=== PATIENT | male | born 1970 | race Caucasian/White ===

== ENCOUNTER 2021-05-13 08:08 | Inpatient (IN) ==
[2021-05-13] MEDS ORDERED: SODIUM CHLORIDE 0.9% 1000ML 1,000 ML IV STA (08:27)
[2021-05-13] MEDS ORDERED: ACETAMINOPHEN 500 MG TAB PO STA (08:48)
[2021-05-13] MEDS ORDERED: ALBUT/IPRATROP 3MG/0.5MG NEB 3 ML VIAL NEB STA (08:49)
[2021-05-13] MEDS ORDERED: dexAMETHasone 6 MG in SYRINGE 0 ML IV ONE (08:49)
[2021-05-13 09:13] LABS: Base Excess VBG -13.3 mEq/L; pH VBG 7.32 (7.36-7.41)
[2021-05-13 09:17] LABS: Hematocrit (blood only) 47.7 % (42-52); Mean Corpuscular Hemoglobin 31.9 pg (25-34); Mean Corpuscular Hgb Conc 33.5 g/dL (32-36); Mean Corpuscular Volume 95.2 fL (80-100); Mean Platelet Volume 9.7 fL (7.4-10.4); Platelet Count 549 K/uL (130-400); RDW Coefficient of Variation 12.9 % (11.5-14.5); RDW Standard Deviation 45.2 fL (36.4-46.3); Red Blood Count 5.01 M/uL (4.7-6.1); White Blood Count 10.98 K/uL (4.8-10.8)
[2021-05-13] MEDS ORDERED: SODIUM CHLORIDE 0.9% 1000ML 1,000 ML IV ONE ×2 (09:21→09:52)
[2021-05-13 09:48] LABS: Alanine Aminotransferase 68 U/L (12-78); Albumin Globulin Ratio 0.6 (0.9-2); Alkaline Phosphatase 81 U/L (45-117); Aspartate Aminotransferase 20 U/L (15-37); Blood Urea Nitrogen 53 mg/dl (7-18); Calcium 9.8 mg/dl (8.5-10.1); Carbon Dioxide 10 mmol/L (21-32); Chloride 101 mmol/L (98-107); Creatinine Clr Calc Pharmacy 67.5 ml/min; Est GFR (African American) 66.4 ml/min; Est GFR (Non-African American) 57.3 ml/min; Potassium 5.9 mmol/L (3.5-5.1); Sodium 131 mmol/L (136-145); Troponin I < 0.015 ng/ml (0-0.045)
[2021-05-13] MEDS ORDERED: CARBOHYDRATES FOR HYPOGLYCEMIA PO PRN (09:52)
[2021-05-13] MEDS ORDERED: GLUCOSE 10 TABS/TUBE PO PRN (09:52)
[2021-05-13] MEDS ORDERED: DKA GOAL RANGE 150-250 mg/dl ONE (09:52)
[2021-05-13] MEDS ORDERED: DEXTROSE 50% 50 ML SYRINGE IV PRN (09:52)
[2021-05-13] MEDS ORDERED: GLUCAGON FOR INJ 1 MG VIAL SQ PRN (09:52)
[2021-05-13] MEDS ORDERED: GLUCOSE 40% GEL 15 GM TUBE PO PRN (09:52)
[2021-05-13] MEDS ORDERED: STAT IV Infusion **Titration per Protocol STA ×3 (09:52→12:44)
[2021-05-13] MEDS ORDERED: NovoLIN-R BOLUS FROM BAG IV ONE (10:00)
[2021-05-13] MEDS ORDERED: INSULIN REGULAR 250 UNITS in SODIUM CHLORIDE 0.9% 247.5 ML IV SCH ×2 (10:00→14:05)
[2021-05-13 10:05] LABS: Basophils # (auto) 0.06 K/uL (0-0.2); Basophils % (auto) 0.5 %; Immature Granulocytes # (auto) 0.13 K/uL (0.00-0.02); Immature Granulocytes % (auto) 1.2 %; Monocytes # (auto) 1.09 K/uL (0.11-0.59); Monocytes % (auto) 9.9 %; Neutrophils % (auto) 78.4 %
[2021-05-13 10:13] LABS: BUN Creatinine Ratio 37.6 (10-20); Glucose 477 mg/dl (70-99)
[2021-05-13 10:29] LABS: Phosphorus 6.1 mg/dl (2.5-4.9)
[2021-05-13 10:43] LABS: Beta-Hydroxybutyrate 78.79 mg/dl (0.2-2.81)
--- NOTE | 2021-05-13 10:45 | XRay Report ---
XR chest 1V portable CLINICAL HISTORY: COVID, SOB TECHNIQUE: Single frontal radiograph of the chest was obtained. Comparison: Comparison is made to chest one view 01/06/2021 FINDINGS: No lines and tubes are seen. The cardiomediastinal silhouette is normal. Lungs are underinflated. The re are bilateral lower lung airspace opacities. No evidence of pleural effusion or pneumothorax. IMPRESSION: Bilateral lower lung airspace opacities may represent atelectasis and/or pneumonia. ACT 112: Negative or not required by law. Electronically signed by: Twan Long M.D. 05/13/2021 10:44 AM
[2021-05-13 10:57] LABS: Appearance Urine Clear (Clear); Bacteria Urine Automated Negative (Negative); Bilirubin Urine Negative (Negative); Blood Urine Trace (Negative); Color Urine Yellow; Glucose Urine UA 3+ (Negative); Ketones Urine 4+ (Negative); Leukocyte Esterase Urine Negative (Negative); Nitrite Urine Negative (Negative); Protein Urine 1+ (Negative); RBC Urine Automated 0-4 /hpf (0-4); Specific Gravity Urine 1.035 (1.000-1.030); Urobilinogen Urine Negative (Negative); pH Urine 5.5 (4.5-7.5)
[2021-05-13 11:06] LABS: Estimated Average Glucose 252 mg/dl; Hemoglobin A1C 10.4 % (4.5-5.6)
[2021-05-13] MEDS ORDERED: INSULIN ASPART 100 UNITS/ML 3 ML PEN SC SCH ×2 (11:30→16:30)
[2021-05-13] MEDS ORDERED: OPTIRAY 320 125ml IV ONE (11:30)
--- NOTE | 2021-05-13 12:28 | CT Scan Report ---
CT angio chest PE protocol CLINICAL HISTORY: PE TECHNIQUE: Multidetector row helical CT of the chest was performed. Coronal and sagittal reformations were obtained. Automated dose lowering techniques and/or adjustment according to patient size were u tilized for this exam. Comparison: Comparison is made to chest radiograph 05/13/2021 FINDINGS: Lungs and pleura: Multifocal groundglass opacities are seen bilaterally. Atelectasis is seen in place was Heart and pericardium: Heart size is normal. No pericardial effusion. Vessels: No evidence of pulmonary embolism. Mediastinum and luis: Unremarkable. Chest wall and lower neck: Unremarkable. Abdomen: Hepatic steatosis is noted. Bones: Degenerative changes in the thoracic spine. IMPRESSION: 1. No evidence of pulmonary embolism. 2. Multifocal ground glass opacities compatible with history of viral pneumonia. ACT 112: Negative or not required by law. Electronically signed by: Twan Long M.D. 05/13/2021 12:26 PM
--- NOTE | 2021-05-13 12:56 | History & Physical Report ---
Date of Service May 13, 2021 Assessment & Plan (1) Pneumonia due to COVID-19 virus: (2) Acute respiratory failure with hypoxia: Plan: -admit to tele -patient presenting from home with reports of worsening generalized weakness and shortness of breath. Tested positive for COVID-19 on 05/01. He reports obtaining hydroxychloroquine from the Internet for which he took a 10-day course. Was seen in urgent care last week and was found to be hypoxic at 86% however refused oxygen and hospital evaluation. Patient was given prednisone, azithromycin, Augmentin. -In the ED, requiring 2 L of oxygen via oxygen mask -CTA chest negative for PE however shows multifocal ground glass opacities -Given current length of illness, remdesivir would not be indicated. CRP 2.05, tocilizumab not indicated. -IV dexamethasone 6 mg daily -Continue supportive care with nebs, flutter valve, incentive spirometer, self proning encouraged -Pulmonary consult, input appreciated (3) DKA (diabetic ketoacidosis): Plan: -Initial labs show glucose 477, bicarb 10, anion gap 20; VBG pH 7.32 -Continue insulin drip and IVF per protocol -Serial BMP and VBG's -Hgb A1c 8.5 01/2021 (4) DVT prophylaxis: Plan: -SQ Lovenox History of Present Illness Chief Complaint: Shortness of breath Primary Care Provider: Jorgito Fairchild MD 50-year-old male with PMH DM type II, HLD, and other problems listed below who presents to the ED for evaluation of shortness of breath. Patient tested positive for COVID-19 on 05/01. He reports obtaining hydroxychloroquine from the Internet for which he took a 10-day course. Was seen in urgent care last week and was found to be hypoxic at 86% however refused oxygen and hospital evaluation. Patient was given prednisone, azithromycin, Augmentin. Patient reports severe generalized weakness and shortness of breath with minimal exertion. He has had a nonproductive cough. Reports running low-grade fevers. Has had a very poor appetite however denies abdominal pain, nausea, vomiting, diarrhea. No urinary symptoms. In the ED, patient is requiring 10 L of oxygen via OxiMax. CTA chest negative for pulmonary embolism however shows multifocal groundglass opacities. Labs are suggestive of DKA. Patient was given Tylenol, nebulizer treatment, IV dexamethasone, insulin drip started, IVF. Allergies Allergy/AdvReac Type Severity Reaction Status Date / Time No Known Allergies Allergy Unverified 01/06/21 08:51 Home Medications Medication Instructions Recorded Confirmed Type dulaglutide 0.75 mg/0.5 mL 0.75 mg SUBCUT SA 01/06/21 05/13/21 History subcutaneous pen injector (Trulicity) glimepiride 2 mg tablet 2 mg PO QAM 01/06/21 05/13/21 History metformin 1,000 mg tablet 1,000 mg PO BIDM 01/06/21 05/13/21 History albuterol sulfate 2.5 mg INHALATION Q6H PRN 05/13/21 05/13/21 History amoxicillin 875 mg-potassium 1 tab PO BID 05/13/21 05/13/21 History clavulanate 125 mg tablet atorvastatin 20 mg tablet 20 mg PO DAILY 05/13/21 05/13/21 History azithromycin 250 mg tablet 250 mg PO DAILY 05/13/21 05/13/21 History prednisone 20 mg tablet 40 mg PO DAILY 05/13/21 05/13/21 History Past Med/Surg History Medical History (Updated 05/13/21 @ 13:03 by ADONAY Godoy) Diabetes HLD (hyperlipidemia) Surgical History No pertinent past surgical history Family History Other Family history non-contributory Social History Smoking Status: Never smoker Hx Alcohol Use: No Hx Substance Use: No Preferred Language: Sami Molder Hand Required: No Beliefs That Will Affect Care: None Current Living Situation: Spouse Other Information That Helps Us Care for You: No Feels Safe at Home: Yes Safety Concerns: Feels Safe At This Time Assistive Devices: Oxygen - Continuous Assistive Devices Comment: 4L per PCP Review of Systems Review of Systems: ROS per HPI, all other systems reviewed and negative Physical Exam Physical Exam: please refer to Dr. Snider's addendum for physical exam Results & Data Results & Data ([facility]) Vital Signs (Past 12 Hours) Vital Signs Temp Pulse Pulse Resp BP BP Pulse Ox 05/13/21 12:19 36.5 C 94 H 26 H 133/83 93 05/13/21 11:39 99 H 35 H 132/77 96 05/13/21 09:10 91 H 93 05/13/21 09:07 28 L 95 05/13/21 09:00 89 95 05/13/21 08:50 89 94 05/13/21 08:49 91 H 93 05/13/21 08:12 36.4 C L 92 H 24 128/68 88 L Laboratory Results Short CBC 05/13/21 Range/Units 08:59 WBC 10.98 H (4.8-10.8) K/uL Hgb 16.0 (14.0-18.0) g/dL Hct 47.7 (42-52) % Plt Count 549 H (130-400) K/uL BMP 05/13/21 08:59 Sodium 131 L Potassium 5.9 H Chloride 101 Carbon Dioxide 10 L BUN 53 H Creatinine 1.41 H Glucose 477 H* Calcium 9.8 Cardiac Enzymes 05/13/21 Range/Units 08:59 Troponin I < 0.015 (0-0.045) ng/ml Liver Function 05/13/21 Range/Units 08:59 Total Bilirubin 1.0 (0.2-1) mg/dl AST 20 (15-37) U/L ALT 68 (12-78) U/L Alkaline Phosphatase 81 (45-117) U/L Albumin 3.0 L (3.4-5.0) gm/dl Urine 05/13/21 Range/Units 10:41 Urine Color Yellow Urine Appearance Clear (Clear) Urine pH 5.5 (4.5-7.5) Ur Specific [place] 1.035 H (1.000-1.030) Urine Protein 1+ H (Negative) Urine Glucose (UA) 3+ H (Negative) Diagnostic Findings Chest X-Ray 05/13/21 08:27 XR chest 1V portable CLINICAL HISTORY: COVID, SOB TECHNIQUE: Single frontal radiograph of the chest was obtained. Comparison: Comparison is made to chest one view 01/06/2021 FINDINGS: No lines and tubes are seen. The cardiomediastinal silhouette is normal. Lungs are underinflated. There are bilateral lower lung airspace opacities. No evidence of pleural effusion or pneumothorax. IMPRESSION: Bilateral lower lung airspace opacities may represent atelectasis and/or pneumonia. ACT 112: Negative or not required by law. Electronically signed by: Twan Long M.D. 05/13/2021 10:44 AM Chest CTA 05/13/21 10:25 CT angio chest PE protocol CLINICAL HISTORY: PE TECHNIQUE: Multidetector row helical CT of the chest was performed. Coronal and sagittal reformations were obtained. Automated dose lowering techniques and/or adjustment according to patient size were utilized for this exam. Comparison: Comparison is made to chest radiograph 05/13/2021 FINDINGS: Lungs and pleura: Multifocal groundglass opacities are seen bilaterally. Atelectasis is seen in place was Heart and pericardium: Heart size is normal. No pericardial effusion. Vessels: No evidence of pulmonary embolism. Mediastinum and luis: Unremarkable. Chest wall and lower neck: Unremarkable. Abdomen: Hepatic steatosis is noted. Bones: Degenerative changes in the thoracic spine. IMPRESSION: 1. No evidence of pulmonary embolism. 2. Multifocal ground glass opacities compatible with history of viral pneumonia. ACT 112: Negative or not required by law. Electronically signed by: Twan Long M.D. 05/13/2021 12:26 PM Code Status & VTE Plan VTE Prophylaxis Plan VTE Prophylaxis will be ordered: Yes Supervising Physician Co-Signing Physician Notes Pt is a 50 y/o M with hx of DMII, HLD, LBBB, LAFB and recent dx of COVID infection on 05/01 admitted for hypoxic respiratory failure, DKA and DAVID. -pt completed 10 days of hydroxychloroquine (prescribed by frontline doctor) and he was prescribed augmentin, zpak and prednisone 5 days ago PE: In respiratory distress, well developed Lung: tachypnea, decreased BS on the R lower lobe, no wheezing Cards: Normal S1,S2, no murmur Abd: ND, NT, soft LE: no edema A/P: After pt was transferred to the unit pt wanted to leave AMA --- explained in details about the effect of untreated COVID pneumonia with hypoxia and DKA ----- pt stated that he has multiple physician/nurses in the family and they will treat him as outpt and he is going to talk to his family doctor also. --- even after the explanation pt wanted to leave AMA: paperwork signed at 1.33 pm Plan before left AMA: Hypoxic respiratory failure: -likely 2/2 COVID pneumonia -will get procal to r/o possible superimposed bacterial pneumonia - CTA chest to r/o PE - Since pt was dx with COVID 12 days ago will hold off starting him on Remdesivir until pulm recommendation --- initially pt stated that he does not want to receive remdesivir but after explaining the benefit pt agreed to get Remdesivir ---- likely will need addition of Baricitinib or Tocilizumab - will start him of dexamethasone - for now will continue him on oxygen supplement via oxymask ---- if pt becomes more tachypneic or hypoxic then will transfer him to [facility] DKA: -pt is receiving 1L NS bolus - started on insulin gtt - NPO for now - will continue to monitor BMP (q4hr) and replete K+ as needed ---- current K: 5.9 DAVID: -likely 2/2 infection + DKA -getting fluids -will monitor Cr
[2021-05-13] MEDS ORDERED: ACETAMINOPHEN 325 MG TAB PO PRN (14:05)
[2021-05-13] MEDS ORDERED: PENDING 1/2NSS+20mEq KCL IVF SCH (14:30)
[2021-05-13] MEDS ORDERED: SODIUM CHLORIDE 0.9% 1000ML 1,000 ML IV SCH (14:30)
[2021-05-13] MEDS ORDERED: PENDING D5 1/2NS+20mEq KCL IVF SCH (14:30)
[2021-05-13] MEDS ORDERED: ENOXAPARIN INJ 40 MG/0.4 ML SYR SQ SCH (15:00)
--- NOTE | 2021-05-13 15:21 | Emergency Department Note ---
Impression & Plan Pneumonia due to COVID-19 virus, DKA (diabetic ketoacidosis) ED Provider Note CHIEF COMPLAINT: Shortness of breath HISTORY OF PRESENT ILLNESS: This 50-year-old male patient presents to the [facility] department with complaints of shortness of breath. Patient states he has tested positive for COVID-19 several days ago at the urgent care clinic. Patient states he is not vaccinated and has been having increased symptoms. His history is somewhat limited due to severity of illness. Patient is having increased respiratory effort and is on oxygen via EMS. Patient was able to state that his blood sugar was elevated last evening at 480 prior to going to bed. He did not take his Metformin last night or this morning. He is noted to be 88% on 4 L nasal cannula. Per [facility] medical records, the patient has not Covid vaccinated and did obtain hydroxychloroquine from an outpatient provider. He has recently been on prednisone and a azithromycin through the urgent care clinic. REVIEW OF SYSTEMS: A review of systems was performed with positives and pertinent negatives listed in the history of present illness. 10 systems were reviewed and are otherwise negative. ALLERGIES: see below MEDICATIONS: see below PMH: see below SOCIAL HISTORY: see below DDx: COVID PNA, reactive airway disease, pneumonia, pneumothorax, COPD, CHF, infections, cardiac ischemia, pulmonary embolism, musculoskeletal, gastrointestinal, as well as other pathologies. PHYSICAL EXAM: Vital signs reviewed. General: Somewhat ill-appearing 49-year-old male, increased work of breathing, increased respiratory rate HEENT: No scleral icterus, PERRLA, neck supple. Atraumatic. Cardiovascular: Regular rate and rhythm, no extra sounds. Pulmonary: Faint crackles to auscultation bilaterally, increased work of breathing. Abdomen: Soft, nontender, nondistended, positive bowel sounds. Musculoskeletal: Atraumatic, no peripheral edema. Neurologic: Patient awake alert and oriented x 3 Skin: Warm, dry, no rash EMERGENCY DEPARTMENT COURSE/MDM: This patient was evaluated and appeared to be in no significant distress. IV access was obtained and laboratory work was drawn. The patient was placed on a cardiac rehabilitation program director and noted to be in a normal sinus rhythm at 89 bpm. The patient is known to be Covid positive and is markedly hyperglycemic. He also is noted to have a bicarb of 10. Patient was hydrated aggressively with normal saline solution and given IV Tylenol for his discomfort. He did have increased work of breathing which is likely multifactorial. Chest x-ray reveals patchy bilateral infiltrates which is consistent with his Covid diagnosis. IV dexamethasone was ordered but held secondary to the hyperglycemia. Patient is maintaining his oxygenation on oxygen mask. Patient requires an IV insulin drip for his DKA. I did discuss the case with the hospitalist service for further management. According to outpatient records through the [facility] system, the patient is not Covid va ccinated and has obtained hydroxychloroquine through an out of system provider. He has recently been taking prednisone and azithromycin through a local urgent care. The presentation may be exacerbated by the steroids and multiple prescriptions for his Covid diagnosis. The inpatient team is aware and will evaluate the patient for admission. MONITORING: An order for cardiac monitoring was placed and the patient is noted to be in a normal sinus rhythm at 91 beats per minute. RADIOLOGY: See below EKG: Normal sinus rhythm at 86 bpm. Right bundle branch block with repolarization abnormality, left anterior fascicular block. No PVC, no PAC. QTc is 464. Normal ST segments DISPOSITION: Admission I have personally spent 60 minutes of critical care time in the direct management of this patient. This was a life threatening event. This 60 minutes is in excess of all separately billable procedures. Past Med/Surg History Medical History Diabetes HLD (hyperlipidemia) Surgical History No pertinent past surgical history Family History Other Family history non-contributory Social History Smoking Status: Never smoker Hx Alcohol Use: No Hx Substance Use: No Preferred Language: Italian Product Safety Specialist Required: No Beliefs That Will Affect Care: None Current Living Situation: Spouse Other Information That Helps Us Care for You: No Feels Safe at Home: Yes Safety Concerns: Feels Safe At This Time Assistive Devices: Oxygen - Continuous Assistive Devices Comment: 4L per PCP Allergies Allergies Allergy/AdvReac Type Severity Reaction Status Date / Time No Known Allergies Allergy Unverified 01/06/21 08:51 Home Meds Home Medications Medication Instructions Recorded Confirmed dulaglutide 0.75 mg/0.5 mL 0.75 mg SUBCUT SA 01/06/21 05/13/21 [facility] glimepiride 2 mg tablet 2 mg PO QAM 01/06/21 05/13/21 metformin 1,000 mg tablet 1,000 mg PO BIDM 01/06/21 05/13/21 albuterol sulfate 2.5 mg INHALATION Q6H PRN 05/13/21 05/13/21 amoxicillin 875 mg-potassium 1 tab PO BID 05/13/21 05/13/21 clavulanate 125 mg tablet atorvastatin 20 mg tablet 20 mg PO DAILY 05/13/21 05/13/21 azithromycin 250 mg tablet 250 mg PO DAILY 05/13/21 05/13/21 prednisone 20 mg tablet 40 mg PO DAILY 05/13/21 05/13/21 Results & Data (ED) Vital Signs Vital Signs - 24 hr 05/13/21 08:12 05/13/21 08:49 05/13/21 08:50 Temperature 36.4 C L Temperature Source Temporal Artery Scan Pulse Rate 92 H 91 H 89 Pulse Rate [Left Finger] Pulse Rate from SpO2 Sensor 89 89 Respiratory Rate 24 Respiratory Effort / Characteristics Blood Pressure 128/68 Blood Pressure Mean 88 Pulse Oximetry 88 L 93 94 Oxygen Delivery Method Nasal Cannula Nasal Cannula Nasal Cannula Oxygen Flow Rate 4 4 4 Fraction of Inspired Oxygen Sepsis Recent Fever Within 48 Hours No Sepsis New/Unexplained Change in Mental Status No Sepsis Action Taken by Nursing No Action Required Oxygen Flow Rate - Titration Pulse Oximetry Post Tiitration 05/13/21 09:00 05/13/21 09:07 05/13/21 09:10 Temperature Temperature Source Pulse Rate 89 91 H Pulse Rate [Left Finger] 28 L Pulse Rate from SpO2 Sensor 90 91 H Respiratory Rate Respiratory Effort / Characteristics Spontaneous Blood Pressure Blood Pressure Mean Pulse Oximetry 95 95 93 Oxygen Delivery Method Nasal Cannula Oxymask Oxymask Oxygen Flow Rate 4 10 10 Fraction of Inspired Oxygen 4 Sepsis Recent Fever Within 48 Hours Sepsis New/Unexplained Change in Mental Status Sepsis Action Taken by Nursing Oxygen Flow Rate - Titration 10 Pulse Oximetry Post Tiitration 95 Home Medications Current Medication List: was personally reviewed by me Laboratory Data Attestation: I reviewed the patient's lab results. Result diagrams: 05/13/21 08:59 05/13/21 08:59 Lab Results 10/05/13/21 05/13/21 Range/Units 08:27 08:27 08:59 WBC 10.98 H (4.8-10.8) K/uL RBC 5.01 (4.7-6.1) M/uL Hgb 16.0 (14.0-18.0) g/dL Hct 47.7 (42-52) % MCV 95.2 (80-100) fL MCH 31.9 (25-34) pg MCHC 33.5 (32-36) g/dL RDW Std Deviation 45.2 (36.4-46.3) fL RDW Coeff of Cory 12.9 (11.5-14.5) % Plt Count 549 H (130-400) K/uL MPV 9.7 (7.4-10.4) fL Immature Gran % (Auto) 1.2 % Neut % (Auto) 78.4 % Lymph % (Auto) 10.0 % [place] % (Auto) 9.9 % Eos % (Auto) 0.0 % Baso % (Auto) 0.5 % Neut # (Auto) 8.60 H (1.4-6.5) K/uL Lymph # (Auto) 1.10 L (1.2-3.4) K/uL [place] # (Auto) 1.09 H (0.11-0.59) K/uL Eos # (Auto) 0.00 (0-0.5) K/uL Baso # (Auto) 0.06 (0-0.2) K/uL Immature Gran # (Auto) 0.13 H (0.00-0.02) K/uL VBG pH (7.36-7.41) VBG pCO2 (38-50) mmHg VBG pO2 mmHg VBG HCO3 mmol/L VBG O2 Saturation % VBG Base Excess mEq/L Barometric Pressure mm/Hg Sodium (136-145) mmol/L Potassium (3.5-5.1) mmol/L Chloride (98-107) mmol/L Carbon Dioxide (21-32) mmol/L Anion Gap (3-11) BUN (7-18) mg/dl Creatinine (0.6-1.4) mg/dl Est Cr Clr Drug Dosing ml/min Est GFR ( Amer) ml/min Est GFR (Non-Af Amer) ml/min BUN/Creatinine Ratio (10-20) Glucose (70-99) mg/dl Estimat Average Glucose mg/dl Hemoglobin A1c (4.5-5.6) % Lactate (0.4-2.0) mmol/L Calcium (8.5-10.1) mg/dl Phosphorus 6.1 H (2.5-4.9) mg/dl Magnesium 3.0 H (1.8-2.4) mg/dl Total Bilirubin (0.2-1) mg/dl AST (15-37) U/L ALT (12-78) U/L Alkaline Phosphatase (45-117) U/L Troponin I (0-0.045) ng/ml C-Reactive Protein 2.05 H (0-0.29) mg/dl Total Protein (6.4-8.2) gm/dl Albumin (3.4-5.0) gm/dl Globulin (2.5-4.0) gm/dl Albumin/Globulin Ratio (0.9-2) Beta-Hydroxybutyric Acd (0.2-2.81) mg/dl Urine Color Urine Appearance (Clear) Urine pH (4.5-7.5) Ur Specific [place] (1.000-1.030) Urine Protein (Negative) Urine Glucose (UA) (Negative) Urine Ketones (Negative) Urine Blood (Negative) Urine Nitrite (Negative) Urine Bilirubin (Negative) Urine Urobilinogen (Negative) Ur Leukocyte Esterase (Negative) Urine WBC (Auto) (0-5) /hpf Urine RBC (Auto) (0-4) /hpf U Hyaline Cast (Auto) (0-5) /lpf U Epithel Cells (Auto) (0-5) /lpf Urine Bacteria (Auto) (Negative) COVID-19 Eval Order SARS-CoV-2 (PCR) (Negative) 05/13/21 05/13/21 05/13/21 Range/Units 08:59 08:59 08:59 WBC (4.8-10.8) K/uL RBC (4.7-6.1) M/uL Hgb (14.0-18.0) g/dL Hct (42-52) % MCV (80-100) fL MCH (25-34) pg MCHC (32-36) g/dL RDW Std Deviation (36.4-46.3) fL RDW Coeff of Cory (11.5-14.5) % Plt Count (130-400) K/uL MPV (7.4-10.4) fL Immature Gran % (Auto) % Neut % (Auto) % Lymph % (Auto) % [place] % (Auto) % Eos % (Auto) % Baso % (Auto) % Neut # (Auto) (1.4-6.5) K/uL Lymph # (Auto) (1.2-3.4) K/uL [place] # (Auto) (0.11-0.59) K/uL Eos # (Auto) (0-0.5) K/uL Baso # (Auto) (0-0.2) K/uL Immature Gran # (Auto) (0.00-0.02) K/uL VBG pH (7.36-7.41) VBG pCO2 (38-50) mmHg VBG pO2 mmHg VBG HCO3 mmol/L VBG O2 Saturation % VBG Base Excess mEq/L Barometric Pressure mm/Hg Sodium 131 L (136-145) mmol/L Potassium 5.9 H (3.5-5.1) mmol/L Chloride 101 (98-107) mmol/L Carbon Dioxide 10 L (21-32) mmol/L Anion Gap 20.0 H (3-11) BUN 53 H (7-18) mg/dl Creatinine 1.41 H (0.6-1.4) mg/dl Est Cr Clr Drug Dosing 67.5 ml/min Est GFR ( Amer) 66.4 ml/min Est GFR (Non-Af Amer) 57.3 ml/min BUN/Creatinine Ratio 37.6 H (10-20) Glucose 477 H* (70-99) mg/dl Estimat Average Glucose 252 mg/dl Hemoglobin A1c 10.4 H (4.5-5.6) % Lactate 1.8 (0.4-2.0) mmol/L Calcium 9.8 (8.5-10.1) mg/dl Phosphorus (2.5-4.9) mg/dl Magnesium (1.8-2.4) mg/dl Total Bilirubin 1.0 (0.2-1) mg/dl AST 20 (15-37) U/L ALT 68 (12-78) U/L Alkaline Phosphatase 81 (45-117) U/L Troponin I < 0.015 (0-0.045) ng/ml C-Reactive Protein (0-0.29) mg/dl Total Protein 8.0 (6.4-8.2) gm/dl Albumin 3.0 L (3.4-5.0) gm/dl Globulin 5.0 H (2.5-4.0) gm/dl Albumin/Globulin Ratio 0.6 L (0.9-2) Beta-Hydroxybutyric Acd 78.79 H (0.2-2.81) mg/dl Urine Color Urine Appearance (Clear) Urine pH (4.5-7.5) Ur Specific [place] (1.000-1.030) Urine Protein (Negative) Urine Glucose (UA) (Negative) Urine Ketones (Negative) Urine Blood (Negative) Urine Nitrite (Negative) Urine Bilirubin (Negative) Urine Urobilinogen (Negative) Ur Leukocyte Esterase (Negative) Urine WBC (Auto) (0-5) /hpf Urine RBC (Auto) (0-4) /hpf U Hyaline Cast (Auto) (0-5) /lpf U Epithel Cells (Auto) (0-5) /lpf Urine Bacteria (Auto) (Negative) COVID-19 Eval Order SARS-CoV-2 (PCR) (Negative) 05/13/21 05/13/21 05/13/21 Range/Units 09:03 09:51 09:51 WBC (4.8-10.8) K/uL RBC (4.7-6.1) M/uL Hgb (14.0-18.0) g/dL Hct (42-52) % MCV (80-100) fL MCH (25-34) pg MCHC (32-36) g/dL RDW Std Deviation (36.4-46.3) fL RDW Coeff of Cory (11.5-14.5) % Plt Count (130-400) K/uL MPV (7.4-10.4) fL Immature Gran % (Auto) % Neut % (Auto) % Lymph % (Auto) % [place] % (Auto) % Eos % (Auto) % Baso % (Auto) % Neut # (Auto) (1.4-6.5) K/uL Lymph # (Auto) (1.2-3.4) K/uL [place] # (Auto) (0.11-0.59) K/uL Eos # (Auto) (0-0.5) K/uL Baso # (Auto) (0-0.2) K/uL Immature Gran # (Auto) (0.00-0.02) K/uL VBG pH 7.32 L (7.36-7.41) VBG pCO2 21 L (38-50) mmHg VBG pO2 59 mmHg VBG HCO3 10 mmol/L VBG O2 Saturation 89.0 % VBG Base Excess -13.3 mEq/L Barometric Pressure 722.0 mm/Hg Sodium (136-145) mmol/L Potassium (3.5-5.1) mmol/L Chloride (98-107) mmol/L Carbon Dioxide (21-32) mmol/L Anion Gap (3-11) BUN (7-18) mg/dl Creatinine (0.6-1.4) mg/dl Est Cr Clr Drug Dosing ml/min Est GFR ( Amer) ml/min Est GFR (Non-Af Amer) ml/min BUN/Creatinine Ratio (10-20) Glucose (70-99) mg/dl Estimat Average Glucose mg/dl Hemoglobin A1c (4.5-5.6) % Lactate (0.4-2.0) mmol/L Calcium (8.5-10.1) mg/dl Phosphorus (2.5-4.9) mg/dl Magnesium (1.8-2.4) mg/dl Total Bilirubin (0.2-1) mg/dl AST (15-37) U/L ALT (12-78) U/L Alkaline Phosphatase (45-117) U/L Troponin I (0-0.045) ng/ml C-Reactive Protein (0-0.29) mg/dl Total Protein (6.4-8.2) gm/dl Albumin (3.4-5.0) gm/dl Globulin (2.5-4.0) gm/dl Albumin/Globulin Ratio (0.9-2) Beta-Hydroxybutyric Acd (0.2-2.81) mg/dl Urine Color Urine Appearance (Clear) Urine pH (4.5-7.5) Ur Specific [place] (1.000-1.030) Urine Protein (Negative) Urine Glucose (UA) (Negative) Urine Ketones (Negative) Urine Blood (Negative) Urine Nitrite (Negative) Urine Bilirubin (Negative) Urine Urobilinogen (Negative) Ur Leukocyte Esterase (Negative) Urine WBC (Auto) (0-5) /hpf Urine RBC (Auto) (0-4) /hpf U Hyaline Cast (Auto) (0-5) /lpf U Epithel Cells (Auto) (0-5) /lpf Urine Bacteria (Auto) (Negative) COVID-19 Eval Order Covid19 at [facility] SARS-CoV-2 (PCR) POSITIVE A* (Negative) 05/13/21 Range/Units 10:41 WBC (4.8-10.8) K/uL RBC (4.7-6.1) M/uL Hgb (14.0-18.0) g/dL Hct (42-52) % MCV (80-100) fL MCH (25-34) pg MCHC (32-36) g/dL RDW Std Deviation (36.4-46.3) fL RDW Coeff of Cory (11.5-14.5) % Plt Count (130-400) K/uL MPV (7.4-10.4) fL Immature Gran % (Auto) % Neut % (Auto) % Lymph % (Auto) % [place] % (Auto) % Eos % (Auto) % Baso % (Auto) % Neut # (Auto) (1.4-6.5) K/uL Lymph # (Auto) (1.2-3.4) K/uL [place] # (Auto) (0.11-0.59) K/uL Eos # (Auto) (0-0.5) K/uL Baso # (Auto) (0-0.2) K/uL Immature Gran # (Auto) (0.00-0.02) K/uL VBG pH (7.36-7.41) VBG pCO2 (38-50) mmHg VBG pO2 mmHg VBG HCO3 mmol/L VBG O2 Saturation % VBG Base Excess mEq/L Barometric Pressure mm/Hg Sodium (136-145) mmol/L Potassium (3.5-5.1) mmol/L Chloride (98-107) mmol/L Carbon Dioxide (21-32) mmol/L Anion Gap (3-11) BUN (7-18) mg/dl Creatinine (0.6-1.4) mg/dl Est Cr Clr Drug Dosing ml/min Est GFR ( Amer) ml/min Est GFR (Non-Af Amer) ml/min BUN/Creatinine Ratio (10-20) Glucose (70-99) mg/dl Estimat Average Glucose mg/dl Hemoglobin A1c (4.5-5.6) % Lactate (0.4-2.0) mmol/L Calcium (8.5-10.1) mg/dl Phosphorus (2.5-4.9) mg/dl Magnesium (1.8-2.4) mg/dl Total Bilirubin (0.2-1) mg/dl AST (15-37) U/L ALT (12-78) U/L Alkaline Phosphatase (45-117) U/L Troponin I (0-0.045) ng/ml C-Reactive Protein (0-0.29) mg/dl Total Protein (6.4-8.2) gm/dl Albumin (3.4-5.0) gm/dl Globulin (2.5-4.0) gm/dl Albumin/Globulin Ratio (0.9-2) Beta-Hydroxybutyric Acd (0.2-2.81) mg/dl Urine Color Yellow Urine Appearance Clear (Clear) Urine pH 5.5 (4.5-7.5) Ur Specific [place] 1.035 H (1.000-1.030) Urine Protein 1+ H (Negative) Urine Glucose (UA) 3+ H (Negative) Urine Ketones 4+ H (Negative) Urine Blood Trace H (Negative) Urine Nitrite Negative (Negative) Urine Bilirubin Negative (Negative) Urine Urobilinogen Negative (Negative) Ur Leukocyte Esterase Negative (Negative) Urine WBC (Auto) 1-5 (0-5) /hpf Urine RBC (Auto) 0-4 (0-4) /hpf U Hyaline Cast (Auto) 1-5 (0-5) /lpf U Epithel Cells (Auto) 5-10 H (0-5) /lpf Urine Bacteria (Auto) Negative (Negative) COVID-19 Eval Order SARS-CoV-2 (PCR) (Negative) Administered Medications Discontinued Medications Acetaminophen (Acetaminophen 500 Mg Tab) 1,000 mg PO NOW STA Stop: 05/13/21 08:49 Last Admin: 05/13/21 09:48 Dose: 1,000 mg Documented by: [id number] Albuterol (Albut/Ipratrop 3mg/0.5mg Neb 3 Ml Vial) 3 ml NEB NOW STA Stop: 05/13/21 08:50 Last Admin: 05/13/21 09:06 Dose: 3 ml Documented by: [id number] Sodium Chloride (Nss 1000ml) 1,000 mls @ 125 mls/hr IV .Q8H STA Stop: 05/13/21 16:26 Last Admin: 05/13/21 09:14 Dose: 125 mls/hr Documented by: [id number] Dexamethasone 6 mg/ Syringe 1.5 mls @ 1 mls/min IV ONE ONE Stop: 05/13/21 08:50 Last Admin: 05/13/21 10:31 Dose: Not Given Documented by: [id number] Sodium Chloride (Nss 1000ml) 1,000 mls @ 999 mls/hr IV .Q1H1M ONE Stop: 05/13/21 10:21 Last Infusion: 05/13/21 11:40 Dose: 0 mls/hr Documented by: [id number] Admin: 05/13/21 09:48 Dose: 999 mls/hr Documented by: [id number] Sodium Chloride (Nss 1000ml) 1,000 mls @ 999 mls/hr IV .Q1H1M ONE Stop: 05/13/21 10:52 Last Infusion: 05/13/21 11:40 Dose: 0 mls/hr Documented by: [id number] Admin: 05/13/21 10:40 Dose: 999 mls/hr Documented by: [id number] Insulin Human Regular 250 (units/ Sodium Chloride) 250 mls @ 0 mls/hr IV .Q0M ELLYN; Protocol Stop: 06/12/21 09:59 Last Titration: 05/13/21 13:30 Dose: 0 units/hr, 0 mls/hr Documented by: [id number] Cosigned by: [id number] Titration: 05/13/21 12:45 Dose: 8.2 units/hr, 8.2 mls/hr Documented by: [id number] Cosigned by: [id number] Titration: 05/13/21 11:43 Dose: 10.3 units/hr, 10.3 mls/hr Documented by: [id number] Cosigned by: [id number] Admin: 05/13/21 10:43 Dose: 8.6 units/hr, 8.6 mls/hr Documented by: [id number] Cosigned by: [id number] Insulin Human Regular (Novolin-R Bolus From Bag) 8.6 units IV ONE ONE Stop: 05/13/21 10:01 Last Admin: 05/13/21 10:44 Dose: 8.6 units Documented by: [id number] Cosigned by: [id number] Ioversol (Optiray 320 125ml) 120 ml IV ONCE ONE Stop: 05/13/21 11:31 Last Admin: 05/13/21 11:30 Dose: 120 ml Documented by: [id number] Imaging Data Radiologist's Impression: Chest X-Ray 05/13/21 08:27 XR chest 1V portable CLINICAL HISTORY: COVID, SOB TECHNIQUE: Single frontal radiograph of the chest was obtained. Comparison: Comparison is made to chest one view 01/06/2021 FINDINGS: No lines and tubes are seen. The cardiomediastinal silhouette is normal. Lungs are underinflated. There are bilateral lower lung airspace opacities. No evidence of pleural effusion or pneumothorax. IMPRESSION: Bilateral lower lung airspace opacities may represent atelectasis and/or pneumonia. ACT 112: Negative or not required by law. Electronically signed by: Twan Long M.D. 05/13/2021 10:44 AM Chest CTA 05/13/21 10:25 CT angio chest PE protocol CLINICAL HISTORY: PE TECHNIQUE: Multidetector row helical CT of the chest was performed. Coronal and sagittal reformations were obtained. Automated dose lowering techniques and/or adjustment according to patient size were utilized for this exam. Comparison: Comparison is made to chest radiograph 05/13/2021 FINDINGS: Lungs and pleura: Multifocal groundglass opacities are seen bilaterally. Atelectasis is seen in place was Heart and pericardium: Heart size is normal. No pericardial effusion. Vessels: No evidence of pulmonary embolism. Mediastinum and luis: Unremarkable. Chest wall and lower neck: Unremarkable. Abdomen: Hepatic steatosis is noted. Bones: Degenerative changes in the thoracic spine. IMPRESSION: 1. No evidence of pulmonary embolism. 2. Multifocal ground glass opacities compatible with history of viral pneumonia. ACT 112: Negative or not required by law. Electronically signed by: Twan Long M.D. 05/13/2021 12:26 PM Blood Pressure Blood Pressure Findings: Elevated blood pressure Blood Pressure Disposition: further management by hospitalist Discharge Plan Visit Data Chief Complaint: Shortness of Breath/Dyspnea Stated Complaint: SOB ED Provider: Amrita Gale Discharge Problem: Pneumonia due to COVID-19 virus, DKA (diabetic ketoacidosis) Patient Disposition: Admitted As Inpatient Discharge Instructions Interventions: ED Discharge Assessment Last Done: 05/13/21 11:55 Discharge Problem: DKA (diabetic ketoacidosis) Qualifiers: Diabetes mellitus type: type 2 Diabetes mellitus complication detail: without coma Qualified Code(s): E11.10 - Type 2 diabetes mellitus with ketoacidosis without coma
--- NOTE | 2021-05-14 05:12 | Electrocardiogram Report ---
Test Reason : Blood Pressure : / mmHG Vent. Rate : 086 BPM Atrial Rate : 086 BPM P-R Int : 128 ms QRS Dur : 128 ms QT Int : 388 ms P-R-T Axes : 031 -81 025 degrees QTc Int : 464 ms Poor data quality, interpretation may be adversely affected Normal sinus rhythm Right bundle branch block Left anterior fascicular block Bifascicular block Abnormal ECG When compared with ECG of 06-JAN-2021 07:49, No significant change was found Confirmed by Kwan Bird ([id number]) on 05/14/2021 5:11:52 AM Referred By: REFERRED SELF Confirmed By:Kwan Bird
[2021-05-14] MEDS ORDERED: ATORVASTATIN 20 MG TAB PO SCH (09:00)
--- NOTE | 2021-05-26 12:38 | Discharge Summary ---
Date of Service May 26, 2021 Admission HPI Per Admitting Provider 50-year-old male with PMH DM type II, HLD, and other problems listed below who presents to the ED for evaluation of shortness of breath. Patient tested positive for COVID-19 on 05/01. He reports obtaining hydroxychloroquine from the Internet for which he took a 10-day course. Was seen in urgent care last week and was found to be hypoxic at 86% however refused oxygen and hospital evaluation. Patient was given prednisone, azithromycin, Augmentin. Patient reports severe generalized weakness and shortness of breath with minimal exertion. He has had a nonproductive cough. Reports running low-grade fevers. Has had a very poor appetite however denies abdominal pain, nausea, vomiting, diarrhea. No urinary symptoms. In the ED, patient is requiring 10 L of oxygen via OxiMax. CTA chest negative for pulmonary embolism however shows multifocal groundglass opacities. Labs are suggestive of DKA. Patient was given Tylenol, nebulizer treatment, IV dexamethasone, insulin drip started, IVF. Principal Diagnosis COVID pneumonia and DKA. Pt left AMA Discharge Data Allergies Allergy/AdvReac Type Severity Reaction Status Date / Time No Known Allergies Allergy Unverified 01/06/21 08:51 Consultations 05/13/21 11:28 ED Decision to Admit Stat Ordered Studies 05/13/21 10:25 CT angio chest PE protocol Stat Total Time Total Time Spent Total Time Spent (In Minutes): 40 mins Discharge Plan Discharge Items Patient Disposition: Against Medical Advice Reason For Visit: COVID PNEUMONIA Condition on Discharge: Serious Activity: As commented below Activity Comment: Pt left AMA Non-emergency contact: Primary Care Provider Follow-up/Referrals: Jorgito Fairchild MD [Primary Care Provider] - Pending Studies at Discharge: No Stand-Alone Forms: [employer], Smoking Cessation Skilled Items Patient informed of condition?: Yes DNR: No Medications and DC Order Prescriptions: Continued glimepiride 2 mg tablet 2 mg PO QAM RF: 0 metformin 1,000 mg tablet 1,000 mg PO BIDM RF: 0 Trulicity 0.75 mg/0.5 mL pen injector 0.75 mg SUBCUT SA RF: 0 atorvastatin 20 mg tablet 20 mg PO DAILY RF: 0 albuterol sulfate 2.5 mg /3 mL (0.083 %) solution for nebulization 2.5 mg inhalation Q6H PRN (Reason: Shortness Of Breath) RF: 0 Discontinued azithromycin 250 mg tablet 250 mg PO DAILY RF: 0 prednisone 20 mg tablet 40 mg PO DAILY RF: 0 amoxicillin-pot clavulanate 875-125 mg tablet 1 tab PO BID RF: 0 Discharge Orders: Discharge Order (Routine); Ordered 05/13/21 Ordered By: Leah Jones Left Against Medical Advice (Routine); Ordered 05/13/21 Ordered By: Emile Snider Admission Data Admit Date/Time: 05/13/21 10:56 Attending Provider: Emile Snider Admit Provider: Emile Snider Primary Care Provider: Jorgito Fairchild I. Other Interventions: Discharge Summary Assessment (RN) Last Done: 05/13/21 14:52
== END 2021-05-13 13:45 | disposition left against medical advice (07) | DRG 177 ==
LOC: ED 08:08 → 2E 10:56